=== PATIENT | male | born 1995 | race Two or more races ===

== ENCOUNTER 2024-07-28 18:54 | Emergency (ER) | payer MEDICAID, OTHER ==
[~2024-07-28] VITALS: Ht 177.8 cm; Wt 99.9 kg
[2024-07-28 20:16] LABS: Basophils # (auto) 0 10 ^3/uL (0-0.2); Basophils % (auto) 0.2 % (0.0-2.0); Eosinophils # (auto) 0.3 10 ^3/uL (0-0.8); Eosinophils % (auto) 3.9 % (0.0-7.0); Hematocrit 45.5 % (41.0-53.0); Hemoglobin 15.8 g/dL (13.5-17.5); Lymphocytes # (auto) 2.5 10 ^3/uL (0.4-5.4); Lymphocytes % (auto) 29.6 % (10.0-50.0); Mean Corpuscular Hemoglobin 31.2 pg (28.0-32.0); Mean Corpuscular Hgb Conc. 34.6 g/dL (32.0-36.0); Mean Corpuscular Volume 90.1 fL (80.0-100.0); Monocytes # (auto) 0.6 10 ^3/uL (0-1.3); Monocytes % (auto) 7.7 % (0.0-12.0); Neutrophils # (auto) 4.9 10 ^3/uL (1.6-8.6); Neutrophils % (auto) 58.6 % (37.0-80.0); Platelet Count (auto) 318 10^3/uL (140-450); Red Blood Cells 5.05 10^6/uL (4.5-5.90); Red Cell Distribution Width 13.3 % (11.8-14.3); White Blood Cell 8.4 10^3/uL (4.4-10.8)
[2024-07-28 20:36] LABS: Alanine Aminotransferase 33 U/L (7-40); Albumin 5.1 g/dL (3.2-4.8); Alkaline Phosphatase 96 U/L (46-116); Anion Gap 5 (5-15); Aspartate Aminotransferase 34 U/L (13-40); BUN/Creatinine Ratio 11.8 (10.0-20.0); Bilirubin, Total 1.2 mg/dL (0.2-1.0); Blood Urea Nitrogen 12 mg/dL (9-23); Carbon Dioxide 29 mmol/L (20-30); Chloride 104 mmol/L (98-107); Glucose 87 mg/dL (74-106); Potassium 3.8 mmol/L (3.5-5.1); Sodium 138 mmol/L (136-145); Total Protein 8.2 g/dL (5.7-8.2)
[2024-07-28] MEDS: PANTOPRAZOLE 40 MG TAB PO ONE (20:46)
[2024-07-28 20:58] LABS: Lipase 58 U/L (12-53)
[2024-07-28 21:07] LABS: Urine Bacteria None Seen /hpf (None Seen)
[2024-07-28 21:34] LABS: Urine Blood Negative /uL (Negative); Urine Clarity Clear (Clear); Urine Color Yellow (Yellow); Urine Mucus FEW (None Seen); Urine Protein, UAD TRACE (Negative); Urine Urobilinogen Normal (Negative); Urine WBC 1 /hpf (0 - 3); Urine pH 5.5 (5.0-9.0)
[2024-07-28 22:44] VITALS: BP 127/87; PULSE 66; RESP 16; TEMP 98.1; O2SAT 97
== END 2024-07-28 22:46 | disposition home or self-care (01) ==
LOC: ER 18:54
DX: K29.70 Gastritis, unspecified, without bleeding (principal)
CPT/HCPCS: 36415; 80053; 81001; 83690; 85025